=== PATIENT | male | born 1980 | race Caucasian/White ===

== ENCOUNTER → 2018-09-21 | Outpatient (CLI) | payer OTHER ==
--- NOTE | ~2018-09-21 | EKG ---
[place], [place] ELECTROCARDIOGRAM REPORT NAME: BRIANNA MAY UNIT #: [id number] ROOM: DOCTOR: DENISE DRAFT REPORT BIRTHDATE: [birth year] [facility] Test Date: 2018-09-21 Test Time: 11:27:16 Pat Name: BRIANNA MAY Department: Room: OP Gender: M Night Stocker: Ale Posada : 1980 Requested By: ARIELA MERIDA Order Number: [id number] Reading MD: Martin Louis MD Measurements Intervals [place] Rate: 55 P: 12 CA: 139 QRS: 75 QRSD: 102 T: 33 QT: 431 QTc: 413 Interpretive Statements Sinus rhythm Normal ECG Electronically Signed On 09-22-2018 14:07:11 PST by Martin Louis MD CM:EKGRPT:ELECTROCARDIOGRAM REPORT [id number] ARIELA WALKER DRAFT REPORT ARIELA MERIDA
== END | disposition home or self-care (01) ==
LOC: CARD 10:19
DX: I08.1 Rheumatic disorders of both mitral and tricuspid valves (principal)